=== PATIENT | female | born 1975 | race Native Hawaiian/Other Pacific Islander ===

== ENCOUNTER 2019-10-13 10:01 | Day surgery (SDC) | payer OTHER | END 2019-10-13 11:11 | disposition home or self-care (01) | LOC: OR 10:01 | PROC: 3E0R33Z Introduction of Anti-inflammatory into Spinal Canal, Percutaneous Approach (ICD-10-PCS; principal; 2019-10-13) | PROC: 3E0R3BZ Introduction of Anesthetic Agent into Spinal Canal, Percutaneous Approach (ICD-10-PCS; 2019-10-13) | DX: M53.3 Sacrococcygeal disorders, not elsewhere classified (principal); M46.1 Sacroiliitis, not elsewhere classified | CPT/HCPCS: J1020; J3490 ==

== ENCOUNTER 2020-03-22 10:33 | Day surgery (SDC) | payer OTHER ==
[~2020-03-22] VITALS: Ht 30.5 cm; Wt 0.5 kg
== END 2020-03-22 12:27 | disposition home or self-care (01) ==
LOC: OR 10:33
PROC: 3E0R33Z Introduction of Anti-inflammatory into Spinal Canal, Percutaneous Approach (ICD-10-PCS; principal; 2020-03-22)
PROC: 3E0R3BZ Introduction of Anesthetic Agent into Spinal Canal, Percutaneous Approach (ICD-10-PCS; 2020-03-22)
DX: M53.3 Sacrococcygeal disorders, not elsewhere classified (principal); M46.1 Sacroiliitis, not elsewhere classified
CPT/HCPCS: J1020; J3490

== ENCOUNTER 2020-07-12 10:52 | Day surgery (SDC) | payer OTHER ==
[~2020-07-12] VITALS: Ht 30.5 cm; Wt 0.5 kg
== END 2020-07-12 12:02 | disposition home or self-care (01) ==
LOC: OR 10:52
PROC: 3E0R33Z Introduction of Anti-inflammatory into Spinal Canal, Percutaneous Approach (ICD-10-PCS; principal; 2020-07-12)
PROC: 3E0R3BZ Introduction of Anesthetic Agent into Spinal Canal, Percutaneous Approach (ICD-10-PCS; 2020-07-12)
DX: M53.3 Sacrococcygeal disorders, not elsewhere classified (principal); M46.1 Sacroiliitis, not elsewhere classified
CPT/HCPCS: J1020; J3490